=== PATIENT | male | born 1980 | race Caucasian/White ===

== ENCOUNTER 2022-02-19 16:16 | Emergency (ER) | payer SELFPAY ==
--- NOTE | ~2022-02-19 | XR_ITS ---
XR knee LT 3V DATE: 02/19/2022 17:41 INDICATION: Inferior left knee pain TECHNIQUE: 3 views COMPARISON: None FINDINGS: No fracture or dislocation or joint effusion. Joint spaces are preserved. No radiopaque int ra-articular loose body or chondrocalcinosis. No periosteal reaction or bone destruction. IMPRESSION: Negative Reviewed, dictated and finalized at location A. ACE FITTER IMPRESSION: Negative
--- NOTE | ~2022-02-19 | XR_ITS ---
XR foot LT min 3V DATE: 02/19/2022 17:42 INDICATION: Bilateral foot pain TECHNIQUE: 4 views COMPARISON: None FINDINGS: No fracture or dislocation, periosteal reaction or bone destruction. No erosive change. Ham mertoe deformities second through fourth digits. IMPRESSION: No significant abnormality Reviewed, dictated and finalized at location A. L CASKET MAKER IMPRESSION: No significant abnormality
--- NOTE | ~2022-02-19 | XR_ITS ---
XR foot RT min 3V DATE: 02/19/2022 17:42 INDICATION: Nonspecific bilateral foot pain TECHNIQUE: 4 views COMPARISON: None FINDINGS: Hammertoe deformities. No fracture, dislocation, periosteal reaction or bone destruction or erosive change. Joint spaces are preserved. IMPRESSION: Hammertoe deformities; otherwise negative Reviewed, dictated and finalized at location A. MEASURES ABSTRACTOR
[2022-02-19 16:47] VITALS: BP 145/91; PULSE 96; RESP 20; TEMP 36.6; O2SAT 98
[2022-02-19] MEDS: KETOROLAC 30 MG/ML VIAL (*BKC) IM (17:39)
--- NOTE | 2022-02-19 18:56 | ED.LOWEXIN ---
HPI - Extremity Injury (Lower) General Chief Complaint: Extremity Injury, Lower Stated Complaint: left knee and foot pain Time Seen by Provider: 02/19/22 16:20 Source: patient and RN notes reviewed Mode of arrival: ambulatory Limitations: no limitations History of Present Illness complaint: knee injury and foot injury Injury: Right: knee and Bilateral: foot Place: street/outdoors Severity: mild Severity scale (1-10): 3 Relieving factors: nothing Exacerbating factors: weight bearing and movement Context: fall Associated symptoms: snap/pop sensation Related Data Allergies Allergy/AdvReac Type Severity Reaction Status Date / Time No Known Allergies Allergy Verified 02/19/22 17:03 Review of Systems Review of Systems: All systems reviewed & are unremarkable except as noted in HPI and below Constitutional: Constitutional: Reports no additional constitutional complaints Eyes: Eyes: Reports no additional eye complaints ENT: Reports system reviewed and no additional complaints, except as documented Cardiovascular: Cardiovascular: Reports no additional cardiovascular complaints Respiratory: Respiratory: Reports no additional respiratory complaints Gastrointestinal: Gastrointestinal: Reports no additional gastrointestinal complaints Musculoskeletal: Musculoskeletal: Reports no additional musculoskeletal complaints and Reports arthralgias Integumentary/Breasts: Skin/Breast: Reports system reviewed and no additional complaints, except as docu Neurologic: Reports system reviewed and no additional complaints, except as documented Psychiatric: Psychiatric: Reports no additional psychiatric complaints Endocrine: Endocrine: Reports no additional endocrine complaints Hematologic/Lymphatic: Hematologic/Lymphatic: Reports no additional hematologic/lymphatic complaints Allergic/Immunologic: Allergic/Immunologic: Reports no additional allergic/immunologic complaints PMFSH Past Medical History Medical History Contusion of right knee Foot pain, bilateral Exam Const: General: healthy appearing, no acute distress and well nourished Nutritional Appearance: well nourished Orientation/consciousness: patient oriented x3 Limitations: no limitations HENMT: Head: normal to inspection Ears: external ears normal, TM's normal bilaterally and EAC's normal Face/Nose/Sinus: Normal external nose present, Normal nares present, normal facial exam and sinuses nontender Face and sinus: normal facial exam and sinuses nontender Mouth: Yes Normal oral and palatal mucosa present and Yes moist mucous membranes Teeth and gingiva: dentition normal Throat: posterior oropharynx normal Eyes: Conjunctivae: conjunctivae normal Pupils: Equal, round and reactive pupils present EOM: EOMs intact bilaterally Neck: Neck: normal visual inspection, no lymphadenopathy and no meningeal signs Chest: Chest palpation & inspection: normal inspection of the chest Resp: Effort & Inspection: normal respiratory effort Auscultation: clear to auscultation bilaterally Cardio: Rate: regular rate Rhythm: regular rhythm GI: GI Palp: Yes Soft to palpation and No Tenderness to palpation present (GI) Auscultation: normal bowel sounds : General: Yes bladder normal to palpation and Yes no CVA tenderness Back/Spine/Pelvis: Back: no CVA tenderness Skin: General skin exam: normal color Rashes: no rashes Wounds: no wounds Neuro: General: patient oriented x3, moves all extremities, no meningeal signs, no focal motor deficits and CN's II-XI intact bilaterally Cranial nerves: Yes Equal, round and reactive pupils present and Yes Nystagmus not present Speech: normal speech Gait exam (Neuro): Normal gait present Extrem: General: normal to inspection and no pedal edema Other: minimally tender right knee and both feet. no acute joint redness, swelling or deformity. Psych: Mental Status: mental status grossl
[2022-02-19 20:31] VITALS: BP 133/78; PULSE 87; RESP 20; TEMP 36.8; O2SAT 98
== END 2022-02-19 20:33 | disposition home or self-care (01) ==
PROVIDERS: Emergency Provider Emergency Medicine
DX: M79.672 Pain in left foot (principal); M79.671 Pain in right foot; M25.561 Pain in right knee
CPT/HCPCS: 73562; 73630; 96372; 99284; J1885